=== PATIENT | male | born 1950 | race Caucasian/White ===

== ENCOUNTER 2020-05-25 11:00 | Emergency (ER) | payer MEDICARE, BC ==
[~2020-05-25] VITALS: Ht 170.2 cm; Wt 106.8 kg
[2020-05-25 11:10] VITALS: BP 165/71; Ht 170.2 cm; Wt 106.8 kg
[2020-05-25 11:21] LABS: BASOPHILS 0.3 % (0-2); EOSINOPHILS 2.6 % (0-7); HEMATOCRIT 44.3 % (42.0-54.0); HEMOGLOBIN 14.7 g/dL (13.5-17.5); IMMATURE GRANULOCYTES 0.2 % (0-5); LYMPHOCYTE ABS# 0.89 10x3/uL (1.32-3.57); LYMPHOCYTES 15.3 % (15-50); MCH 28.8 pg (26.0-34.0); MCHC 33.2 g/dL (31.0-37.0); MCV 86.9 fL (80.0-100.0); MONOCYTES 7.6 % (2-11); NEUTROPHIL ABS# 4.29 10x3/uL (1.78-5.38); PLATELET COUNT 210 10x3/uL (130-400); RDW 13.3 % (11.5-14.5); WBC 5.8 10x3/uL (4.8-10.8)
[2020-05-25 11:29] LABS: CALC OSMOLALITY 280 mosm/kg (275-300); CALCIUM 8.8 mg/dL (8.5-10.1); CHLORIDE - SERUM 104 mmol/L (98-107); GLUCOSE 107 mg/dL (74-106); SODIUM 140 mmol/L (136-145); UREA NITROGEN 18 mg/dL (7-18); eGFR NON AFRICAN AMERICAN 79 mL/min (90-120)
[2020-05-25 11:30] LABS: INR 1.06 (0.85-1.17); PROTIME 12.8 SECONDS (11.6-15.0)
[2020-05-25 11:31] LABS: APTT 27.4 SECONDS (22.8-39.4)
[2020-05-25 11:45] LABS: ALBUMIN 3.9 g/dL (3.4-5.0); ALKALINE PHOSPHATASE 45 U/L (30-120); ALT (SGPT) 33 U/L (10-68); BILIRUBIN - TOTAL 0.57 mg/dL (0.2-1.3); CKMB 1.9 U/L (0.0-3.6); CREATINE KINASE 88 UL (21-232); MAGNESIUM - SERUM 2.3 mg/dL (1.8-2.4); PROTEIN - SERUM 7.2 g/dL (6.4-8.2); TROPONIN-I < 0.017 ng/mL (0.000-0.060)
[2020-05-25] MEDS ORDERED: DEBROX OTIC15 ML RIGHT EAR (14:31)
[2020-05-25] MEDS ORDERED: MECLIZINE HCL25 MG PO (14:31)
== END 2020-05-25 14:54 | disposition home or self-care (01) ==
LOC: D.ER 11:00
PROVIDERS: Emergency Medicine
DX: R42 Dizziness and giddiness (principal); R00.1 Bradycardia, unspecified; H61.21 Impacted cerumen, right ear